=== PATIENT | female | born 1930 | race Caucasian/White ===

== ENCOUNTER 2018-07-02 06:50 | Observation (INO) | payer MEDICARE ==
[~2018-07-02] VITALS: Ht 172.7 cm; Wt 72.7 kg
[2018-07-02 07:25] LABS: HEMATOCRIT 38.1 % (35.0-45.0); HEMOGLOBIN 12.8 g/dl (12.0-16.0); MEAN CORPUSCULAR HEMOGLOBIN 31.1 PG (27.0-31.0); MEAN CORPUSCULAR HGB CONC 33.7 g/dL (33.0-36.5); MEAN CORPUSCULAR VOLUME 92.3 FL (78-98); MEAN PLATELET VOLUME 8.7 FL (7.4-10.4); PLATELET COUNT 186 X10'3 (140-440); RED BLOOD COUNT 4.13 X10'6 (4.20-5.60); RED CELL DISTRIBUTION WIDTH 13.9 % (11.5-14.5); WHITE BLOOD COUNT 6.3 X10'3 (4.5-11.0)
[2018-07-02] MEDS: ondansetron 4mg rapidly disintigrating tab PO ONE ×2 (07:39→07:47)
[2018-07-02 07:41] LABS: INR 1.1 INR; PARTIAL THROMBOPLASTIN TIME 30 SECONDS (22-32); PROTHROMBIN TIME 11.3 SECONDS (9.0-12.0)
[2018-07-02 07:45] LABS: TOTAL CELLS COUNTED 100
[2018-07-02 07:46] LABS: ALANINE AMINOTRANSFERASE 24 U/L (12-78); ALBUMIN 3.7 G/DL (3.4-5.0); ALBUMIN/GLOBULIN RATIO 0.9 (1.1-1.5); ALKALINE PHOSPHATASE 91 IU/L (46-116); ANION GAP 11 (8-16); ASPARTATE AMINO TRANSFERASE 26 U/L (10-37); BILIRUBIN,TOTAL 1.4 MG/DL (0.1-1.0); BLOOD UREA NITROGEN 19 MG/DL (7-18); BUN/CREATININE RATIO 19.8 (6.6-38.0); CALCIUM 9.3 MG/DL (8.5-10.1); CHLORIDE 102 MMOL/L (99-107); CREATININE 0.96 MG/DL (0.40-0.90); GLUCOSE 96 MG/DL (70-104); PLATELET ESTIMATE NORMAL; POTASSIUM 3.6 MMOL/L (3.5-5.1); SODIUM 140 MMOL/L (135-145); TOTAL CARBON DIOXIDE 26.9 MMOL/L (24-32); TOTAL PROTEIN 7.9 G/DL (6.4-8.2); eGFR 55 ML/MIN
[2018-07-02] MEDS ORDERED: aspirin 325mg tablet PO ONE (07:50)
[2018-07-02] MEDS ORDERED: normal saline 1000ml 1,000 ML IV ONE (07:50)
[2018-07-02] MEDS ORDERED: magnesium 4gm in 100ml NS 100 ML IV PRN (10:00)
[2018-07-02] MEDS ORDERED: magnesium 2GM in 50ml NS 50 ML IV PRN (10:00)
[2018-07-02] MEDS ORDERED: potassium Cl 20 mEq SR tablet PO PRN ×2 (10:00)
[2018-07-02] MEDS ORDERED: magnesium hydroxide 30ml (MOM) UD suspension PO PRN (10:00)
[2018-07-02] MEDS ORDERED: acetaminophen 325mg tablet PO PRN (10:00)
[2018-07-02] MEDS ORDERED: magnesium Cl slow-release 64mg tablet PO PRN (10:00)
[2018-07-02] MEDS ORDERED: ondansetron/PF 4mg/2ml inj IV PRN (10:00)
[2018-07-02] MEDS ORDERED: mag hydrox/Alum hydrox/simeth 30ml oral suspension PO PRN (10:00)
[2018-07-02] MEDS ORDERED: potassium Cl 40MEQ/NS 500ml 500 ML IV PRN ×2 (10:00)
[2018-07-02] MEDS ORDERED: bisacodyl 10mg suppository rectal RC PRN (10:00)
[2018-07-02] MEDS ORDERED: HYDROcodone/acetaminophen 5mg/325mg tablet PO PRN (10:00)
[2018-07-02] MEDS: potassium Cl 20mEq in NS 1,000 ML IV SCH ×2 (12:40→19:45)
--- NOTE | 2018-07-02 12:45 | NUR ---
relieving RN for lunch, pt is resting quietly on bed, resp even and unlabored, skin p/w/d, friend at bedside,
[2018-07-02 14:19] LABS: CLARITY,URINE CLEAR (Clear); COLOR,URINE YELLOW (Yellow); GLUCOSE, URINE NEGATIVE (Neg); KETONES,URINE 15 mg/dl (Neg); LEUKOCYTE ESTERASE ,URINE NEGATIVE (Neg); NITRITES, URINE NEGATIVE (Neg); OCCULT BLOOD,URINE SMALL (Neg); PROTEIN,URINE NEGATIVE (Neg); UROBILINOGEN,URINE 0.2 E.U/dL (0.2-1.0)
[2018-07-02 14:20] LABS: UA COLLECTION TYPE CLN CATCH MIDSTREAM
[2018-07-02 14:30] LABS: BACTERIA,URINE NONE SEEN /HPF (Neg); MUCUS STRANDS FEW /LPF (Neg); RBC,URINE NONE SEEN /HPF (0-2); SQUAMOUS EPITHELIAL CELL,UR FEW /LPF (FEW); WBC,URINE NONE SEEN /HPF (0-4)
[2018-07-02] MEDS ORDERED: LORazepam 2 mg/ml vial IV ONE (15:00)
[2018-07-02] MEDS ORDERED: ASPI-611 PO (15:36)
[2018-07-02] MEDS ORDERED: NAPR220T67 PO (15:36)
[2018-07-02] MEDS ORDERED: MAGN400C PO (15:36)
[2018-07-02] MEDS ORDERED: LISI-604 PO (15:36)
[2018-07-02] MEDS ORDERED: ASCO500C15 PO (15:36)
[2018-07-02 16:15] VITALS: BP 134/76
[2018-07-02 18:00] VITALS: BP 130/65
--- NOTE | 2018-07-02 18:00 | NUR ---
Patient in room ORTHO 4018. I have received report from LAUREN Walter and had the opportunity to ask questions and assume patient care.
--- NOTE | 2018-07-02 18:00 | NUR ---
Problems reprioritized. Patient report given, questions answered & plan of care reviewed with DANICA AGUILAR.
[2018-07-02] MEDS: docusate sod 100mg capsule PO SCH (19:46)
[2018-07-02 22:00] VITALS: BP 134/60
[2018-07-03 06:00] VITALS: BP 142/57
--- NOTE | 2018-07-03 06:05 | NUR ---
Problems reprioritized. Patient report given, questions answered & plan of care reviewed with DANICA AGUILAR.
--- NOTE | 2018-07-03 06:07 | NUR ---
Problems reprioritized. Patient report given, questions answered & plan of care reviewed with LAUREN Walter.
[2018-07-03 07:31] LABS: BASOPHILS % (AUTO) 0.3 % (0-1); EOSINOPHILS # (AUTO) 0.1 X10'3 (0-0.9); EOSINOPHILS % (AUTO) 2.9 % (0-6); HEMATOCRIT 33.7 % (35.0-45.0); HEMOGLOBIN 11.3 g/dl (12.0-16.0); LYMPHOCYTES # (AUTO) 1.6 X10'3 (1.1-4.8); LYMPHOCYTES % (AUTO) 36.4 % (21-51); MEAN CORPUSCULAR HEMOGLOBIN 31.4 PG (27.0-31.0); MEAN CORPUSCULAR HGB CONC 33.7 g/dL (33.0-36.5); MEAN CORPUSCULAR VOLUME 93.2 FL (78-98); MEAN PLATELET VOLUME 8.9 FL (7.4-10.4); MONOCYTES # (AUTO) 0.5 X10'3 (0-0.9); MONOCYTES % (AUTO) 11.1 % (2-12); NEUTROPHILS # (AUTO) 2.2 X10'3 (1.8-7.7); NEUTROPHILS % (AUTO) 49.3 % (42-75); PLATELET COUNT 150 X10'3 (140-440); RED BLOOD COUNT 3.61 X10'6 (4.20-5.60); RED CELL DISTRIBUTION WIDTH 13.9 % (11.5-14.5); WHITE BLOOD COUNT 4.4 X10'3 (4.5-11.0)
[2018-07-03 07:36] LABS: ALBUMIN 3.1 G/DL (3.4-5.0); ANION GAP 9 (8-16); BLOOD UREA NITROGEN 16 MG/DL (7-18); BUN/CREATININE RATIO 18.6 (6.6-38.0); CALCIUM 8.8 MG/DL (8.5-10.1); CHLORIDE 108 MMOL/L (99-107); CREATININE 0.86 MG/DL (0.40-0.90); GLUCOSE 85 MG/DL (70-104); MAGNESIUM 1.9 MG/DL (1.5-2.4); POTASSIUM 4.1 MMOL/L (3.5-5.1); SODIUM 143 MMOL/L (135-145); TOTAL CARBON DIOXIDE 26.1 MMOL/L (24-32); eGFR 62 ML/MIN
[2018-07-03] MEDS: docusate sod 100mg capsule PO SCH (08:00)
[2018-07-03] MEDS ORDERED: aspirin 325mg tablet, delayed-release (Ecotrin) PO SCH (08:00)
[2018-07-03] MEDS ORDERED: enoxaparin 40mg/0.4ml syringe SUBCUT SCH (08:00)
[2018-07-03] MEDS ORDERED: K and/or MAG REPLACEMENT MC SCH (08:00)
--- NOTE | 2018-07-03 08:17 | NUR ---
PAGER ID: [phone] MESSAGE: [id number] RE: SATURNINO [id number] JUST TELE REPORTS PTS HR IN THE 30-40 AT TIMES THROUGHT THE NIGHT
[2018-07-03 09:12] LABS: CHOL/HDL RATIO 3.6 (0.00-4.99); CHOLESTEROL 189 MG/DL (0-200); HDL CHOLESTEROL 52 MG/DL (35-60); LDL CHOLESTEROL 123 MG/DL (50-100); TRIGLYCERIDES 55 MG/DL (20-135)
[2018-07-03 10:00] VITALS: BP 138/67
--- NOTE | 2018-07-03 14:22 | NUR ---
Cindy Consult: Pt admit atrial fibrillation. Pt PO intake is 100% meeting nutrition needs. Pt states that she recently moved and loses weight each time she moves to a new apartment. Pt states she loses weight when she feels anxious but always gains weight back. Pt has not edema or evident fat/muscle wasting. Pt does not meet criteria for malnutrition at this time. Will continue to follow. Addendum: 07/03/18 at [address] Amended: Links added. Addendum: 07/03/18 at [address] I have reviewed and agree with note by Cylinder Worker. Umm Rose RD
[2018-07-03] MEDS: potassium Cl 20mEq in NS 1,000 ML IV SCH (14:33)
--- NOTE | 2018-07-03 15:50 | NUR ---
Patient in room ORTHO 4018. I have received report from Saba and had the opportunity to ask questions and assume patient care.
--- NOTE | 2018-07-03 15:50 | NUR ---
Problems reprioritized. Patient report given, questions answered & plan of care reviewed with HAILEY AGUILAR.
[2018-07-03] MEDS ORDERED: ATOR20TA66 PO (17:06)
[2018-07-03] MEDS ORDERED: APIX5TAB3 PO (17:06)
--- NOTE | 2018-07-03 17:40 | NUR ---
Pt was wheeled down front where her friend will be driving her home. Rx was called into the [facility] pharmacy on [address]
[2018-07-03] MEDS ORDERED: apixaban 5mg tablet PO SCH (20:00)
[2018-07-04] MEDS ORDERED: atorvastatin 20mg tablet PO SCH (08:00)
[2018-07-04] MEDS ORDERED: lisinopril 5mg tablet PO SCH (08:00)
== END 2018-07-03 17:50 | disposition home or self-care (01) ==
LOC: ER 06:52 → ED HOLD 09:57 → ORTHO 4S 16:15
PROVIDERS: ADMIT Internal Medicine; ATTEND Internal Medicine
DX: I48.91 Unspecified atrial fibrillation (principal); M17.11 Unilateral primary osteoarthritis, right knee; I10 Essential (primary) hypertension; E78.5 Hyperlipidemia, unspecified; I25.2 Old myocardial infarction; R20.2 Paresthesia of skin; R42 Dizziness and giddiness
CPT/HCPCS: 36415; 70450; 70544; 70551; 71045; 80048; 80053; 80061; 81001; 83735; 84439; 84443; 84484; 85025; 85610; 85651; 85730; 87070; 93005; 93306; 93880; 96361; 96374; 99284; G0378; J2060

== ENCOUNTER 2018-07-10 09:06 | Emergency (ER) | payer MEDICARE ==
[~2018-07-10] VITALS: Ht 172.7 cm; Wt 72.2 kg
[~2018-07-10 09:06] MED LIST: APIX5TAB3 PO; ASCO500C15 PO; ATOR20TA66 PO; LISI-604 PO; MAGN400C PO
[2018-07-10] MEDS ORDERED: LORazepam 2 mg/ml vial IV ONE (10:40)
--- NOTE | 2018-07-10 11:02 | NUR ---
ANGELINE (PT'S DAUGHTER) CALLED TO CHECK UP ON PT AND FIND OUT HOW SHE IS. PT IS IN MRI AT THIS TIME.
[2018-07-10 11:30] VITALS: BP 149/83
[2018-07-11] MEDS ORDERED: ASPI81TA52 PO (12:48)
[2018-07-11] MEDS ORDERED: ATOR40TA PO (12:48)
== END 2018-07-10 12:14 | disposition home or self-care (01) ==
LOC: ER 09:07
DX: R47.81 Slurred speech (principal); I10 Essential (primary) hypertension; I25.2 Old myocardial infarction; Z88.8 Allergy status to other drugs, medicaments and biological substances; Z79.899 Other long term (current) drug therapy
CPT/HCPCS: 70551; 93005; 96374; 99284; J2060

== ENCOUNTER 2018-07-11 11:34 | Emergency (ER) | payer MEDICARE ==
[~2018-07-11] VITALS: Ht 175.3 cm; Wt 79.0 kg
--- NOTE | 2018-07-11 12:10 | NUR ---
TELE-NEUROLOGY INITIATED
[2018-07-11] MEDS ORDERED: ATOR40TA PO (12:48)
[2018-07-11] MEDS ORDERED: ASPI81TA52 PO (12:48)
[2018-07-11 13:14] VITALS: BP 144/66
== END 2018-07-11 13:21 | disposition home or self-care (01) ==
LOC: ER 11:34
DX: R47.81 Slurred speech (principal); R20.2 Paresthesia of skin; R20.0 Anesthesia of skin; I10 Essential (primary) hypertension; I25.2 Old myocardial infarction; Z88.8 Allergy status to other drugs, medicaments and biological substances; Z79.899 Other long term (current) drug therapy
CPT/HCPCS: 99283

== ENCOUNTER 2018-08-09 19:03 | Emergency (ER) | payer MEDICARE ==
[~2018-08-09] VITALS: Ht 172.7 cm; Wt 72.7 kg
[~2018-08-09 19:03] MED LIST changes: +ASPI81TA52 PO; +ATOR40TA PO
--- NOTE | 2018-08-09 19:36 | NUR ---
labs drawn, piv inplace, pt a&ox4 and reports symptoms are resolving. she reports over the past month have episodes like that and that she has had 2 ct scans and an mri in the past month (all doen here). she was with her friend 1 hr ago in the car (as a passenger) going to a dinner when she began to "not think clearly and slurring my speech". "these episodes seem to have started since i began taking xeralto". takes xeralto for afib and bradycardia. dr. mccracken in with triage nurse to assess. stroke alert level 1 called. Addendum: 08/09/18 at 1939 by EUSEBIO correction: pt taking eloquist, NOT XERALTO.
[2018-08-09 19:48] LABS: BASOPHILS % (AUTO) 0.2 % (0-1); EOSINOPHILS # (AUTO) 0.1 X10'3 (0-0.9); EOSINOPHILS % (AUTO) 2.1 % (0-6); HEMATOCRIT 42.1 % (35.0-45.0); HEMOGLOBIN 13.5 g/dl (12.0-16.0); LYMPHOCYTES % (AUTO) 45.2 % (21-51); MEAN CORPUSCULAR HEMOGLOBIN 30.2 PG (27.0-31.0); MEAN CORPUSCULAR HGB CONC 32.1 g/dL (33.0-36.5); MEAN PLATELET VOLUME 8.4 FL (7.4-10.4); MONOCYTES # (AUTO) 0.7 X10'3 (0-0.9); NEUTROPHILS # (AUTO) 2.8 X10'3 (1.8-7.7); NEUTROPHILS % (AUTO) 42.5 % (42-75); PLATELET COUNT 190 X10'3 (140-440); RED BLOOD COUNT 4.47 X10'6 (4.20-5.60); RED CELL DISTRIBUTION WIDTH 14.4 % (11.5-14.5); WHITE BLOOD COUNT 6.7 X10'3 (4.5-11.0)
[2018-08-09 19:58] LABS: ALANINE AMINOTRANSFERASE 25 U/L (12-78); ALBUMIN 4.1 G/DL (3.4-5.0); ALKALINE PHOSPHATASE 102 IU/L (46-116); ANION GAP 13 (8-16); ASPARTATE AMINO TRANSFERASE 26 U/L (10-37); BILIRUBIN,TOTAL 0.9 MG/DL (0.1-1.0); BLOOD UREA NITROGEN 17 MG/DL (7-18); BUN/CREATININE RATIO 17.9 (6.6-38.0); CALCIUM 9.6 MG/DL (8.5-10.1); CHLORIDE 103 MMOL/L (99-107); CREATININE 0.95 MG/DL (0.40-0.90); GLUCOSE 83 MG/DL (70-104); POTASSIUM 3.5 MMOL/L (3.5-5.1); SODIUM 141 MMOL/L (135-145); TOTAL CARBON DIOXIDE 25.3 MMOL/L (24-32); TOTAL PROTEIN 8.2 G/DL (6.4-8.2); eGFR 56 ML/MIN
[2018-08-09 20:01] LABS: INR 1.1 INR; PARTIAL THROMBOPLASTIN TIME 31 SECONDS (22-32); PROTHROMBIN TIME 11.4 SECONDS (9.0-12.0); TROPONIN I < 0.04 NG/ML (0.0-0.05)
--- NOTE | 2018-08-09 20:29 | NUR ---
Two friends now at bedside.
[2018-08-09] MEDS ORDERED: aspirin 81mg tab.chew PO ONE (20:30)
--- NOTE | 2018-08-09 20:44 | NUR ---
bp 192/110, dr. mccracken updated that bp fluctuating from 160/ systolic to 190's systolic. pt reprots she was taking metoprolol, but dr. mayo recently stopped it. me to order dose of asa and lisinopril prior to dc and to give script for lisinopril. pt with friends at bedide and is no dc ready.
[2018-08-09] MEDS ORDERED: lisinopril 10 MG tablet PO ONE (20:45)
[2018-08-09] MEDS ORDERED: LISI10TA4 PO (20:47)
--- NOTE | 2018-08-09 20:50 | NUR ---
pt reports lisinopril makes her very dizzy and requests metoprolol instead. dr. mccracken reports he will go talk to her.
--- NOTE | 2018-08-09 21:28 | NUR ---
PT STATUS REMAINIS DC WITH MD. THEY ARE AWAITING DR. CABALLERO TO TALK WITH THEM ABOUT HTN MEDS. BP 162/87
[2018-08-09 21:29] VITALS: BP 162/87
[2018-08-09] MEDS ORDERED: AMLO5TAB4 PO (21:29)
[2018-08-09] MEDS ORDERED: amLODIPine 5mg tablet PO ONE (21:30)
--- NOTE | 2018-08-09 21:34 | NUR ---
dr mccracken talking with pt. he reports he has spoken with dr. mayo. pt to be given perscription fo norvasc 5 mg daily and 1st dose here. bp 162/103
== END 2018-08-09 21:59 | disposition home or self-care (01) ==
LOC: ER 19:04
DX: G45.9 Transient cerebral ischemic attack, unspecified (principal); I10 Essential (primary) hypertension; I25.2 Old myocardial infarction; Z86.73 Personal history of transient ischemic attack (TIA), and cerebral infarction without residual deficits; Z88.1 Allergy status to other antibiotic agents; Z79.82 Long term (current) use of aspirin
CPT/HCPCS: 36415; 70450; 71045; 80053; 82948; 84484; 85025; 85610; 85730; 93005; 99284

== ENCOUNTER 2019-11-03 15:33 | Inpatient (IN) | payer MEDICARE ==
[~2019-11-03] VITALS: Ht 172.7 cm; Wt 71.8 kg
[~2019-11-03 15:33] MED LIST changes: +AMLO5TAB4 PO; -ASCO500C15 PO; -ASPI81TA52 PO; -ATOR20TA66 PO; -ATOR40TA PO; -LISI-604 PO; -MAGN400C PO
[2019-11-03 16:44] LABS: BASOPHILS % (AUTO) 0.2 % (0-1); EOSINOPHILS # (AUTO) 0.1 X10'3 (0-0.9); EOSINOPHILS % (AUTO) 1.4 % (0-6); HEMATOCRIT 34.8 % (35.0-45.0); HEMOGLOBIN 11.4 g/dl (12.0-16.0); LYMPHOCYTES # (AUTO) 1.6 X10'3 (1.1-4.8); LYMPHOCYTES % (AUTO) 31.5 % (21-51); MEAN CORPUSCULAR HEMOGLOBIN 30.3 PG (27.0-31.0); MEAN CORPUSCULAR HGB CONC 32.7 g/dL (33.0-36.5); MEAN CORPUSCULAR VOLUME 92.5 FL (78-98); MEAN PLATELET VOLUME 8.3 FL (7.4-10.4); MONOCYTES # (AUTO) 0.5 X10'3 (0-0.9); MONOCYTES % (AUTO) 9.7 % (2-12); NEUTROPHILS # (AUTO) 2.9 X10'3 (1.8-7.7); NEUTROPHILS % (AUTO) 57.2 % (42-75); PLATELET COUNT 208 X10'3 (140-440); RED BLOOD COUNT 3.77 X10'6 (4.20-5.60); RED CELL DISTRIBUTION WIDTH 14.7 % (11.5-14.5); WHITE BLOOD COUNT 5.1 X10'3 (4.5-11.0)
[2019-11-03 16:55] LABS: ALANINE AMINOTRANSFERASE 30 U/L (12-78); ALBUMIN 3.9 G/DL (3.4-5.0); ALKALINE PHOSPHATASE 114 IU/L (46-116); ANION GAP 7 (8-16); ASPARTATE AMINO TRANSFERASE 34 U/L (10-37); BILIRUBIN,TOTAL 0.9 MG/DL (0.1-1.0); BLOOD UREA NITROGEN 24 MG/DL (7-18); BUN/CREATININE RATIO 22.2 (6.6-38.0); CALCIUM 9.3 MG/DL (8.5-10.1); CHLORIDE 107 MMOL/L (99-107); CREATININE 1.08 MG/DL (0.40-0.90); GLUCOSE 95 MG/DL (70-104); POTASSIUM 3.4 MMOL/L (3.5-5.1); SODIUM 143 MMOL/L (135-145); TOTAL CARBON DIOXIDE 29.1 MMOL/L (24-32); eGFR 48 ML/MIN
[2019-11-03] MEDS ORDERED: normal saline 1000ML IV soln IVB ONE (17:45)
[2019-11-03] MEDS ORDERED: pantoprazole 40 MG vial IV ONE (17:45)
[2019-11-03 18:03] LABS: PARTIAL THROMBOPLASTIN TIME 35 SECONDS (22-32)
[2019-11-03] MEDS ORDERED: AMLO5TAB PO (19:03)
[2019-11-03] MEDS ORDERED: APIX5TAB3 PO (19:03)
[2019-11-03] MEDS: normal saline 1000ml 1,000 ML IV SCH (19:18)
[2019-11-03] MEDS ORDERED: mag hydrox/Alum hydrox/simeth 30ml oral suspension PO PRN (19:20)
[2019-11-03] MEDS ORDERED: acetaminophen 325mg tablet PO PRN ×2 (19:20)
[2019-11-03] MEDS ORDERED: ondansetron/PF 4mg/2ml inj IV PRN (19:20)
[2019-11-03] MEDS ORDERED: magnesium hydroxide 30ml (MOM) UD suspension PO PRN (19:20)
[2019-11-03] MEDS ORDERED: HYDROcodone/acetaminophen 5mg/325mg tablet PO PRN (19:20)
[2019-11-03] MEDS ORDERED: morphine 2 MG/ML inj. syringe IV PRN ×2 (19:20)
[2019-11-04] VITALS (17 sets, daily range): BP systolic 129–164; BP diastolic 56–96
[2019-11-04] MEDS: pantoprazole 40MG/NS 100ML BAG 100 ML IV SCH ×5 (00:04→20:03)
[2019-11-04 01:03] LABS: BASOPHILS % (AUTO) 0.3 % (0-1); EOSINOPHILS # (AUTO) 0.1 X10'3 (0-0.9); EOSINOPHILS % (AUTO) 2.6 % (0-6); HEMATOCRIT 31.2 % (35.0-45.0); HEMOGLOBIN 10.3 g/dl (12.0-16.0); LYMPHOCYTES # (AUTO) 1.6 X10'3 (1.1-4.8); LYMPHOCYTES % (AUTO) 33.1 % (21-51); MEAN CORPUSCULAR HEMOGLOBIN 30.9 PG (27.0-31.0); MEAN CORPUSCULAR HGB CONC 33.2 g/dL (33.0-36.5); MEAN CORPUSCULAR VOLUME 93.3 FL (78-98); MEAN PLATELET VOLUME 7.8 FL (7.4-10.4); MONOCYTES # (AUTO) 0.5 X10'3 (0-0.9); MONOCYTES % (AUTO) 9.9 % (2-12); NEUTROPHILS # (AUTO) 2.6 X10'3 (1.8-7.7); NEUTROPHILS % (AUTO) 54.1 % (42-75); PLATELET COUNT 167 X10'3 (140-440); RED BLOOD COUNT 3.34 X10'6 (4.20-5.60); RED CELL DISTRIBUTION WIDTH 14.8 % (11.5-14.5); WHITE BLOOD COUNT 4.7 X10'3 (4.5-11.0)
[2019-11-04 01:16] LABS: ALBUMIN 3.2 G/DL (3.4-5.0); ANION GAP 9 (8-16); BLOOD UREA NITROGEN 19 MG/DL (7-18); BUN/CREATININE RATIO 19.6 (6.6-38.0); CALCIUM 8.7 MG/DL (8.5-10.1); CHLORIDE 110 MMOL/L (99-107); CREATININE 0.97 MG/DL (0.40-0.90); GLUCOSE 86 MG/DL (70-104); POTASSIUM 3.5 MMOL/L (3.5-5.1); SODIUM 144 MMOL/L (135-145); TOTAL CARBON DIOXIDE 24.9 MMOL/L (24-32); eGFR 54 ML/MIN
[2019-11-04] MEDS: normal saline 1000ml 1,000 ML IV SCH ×2 (05:18→10:31)
--- NOTE | 2019-11-04 06:25 | NUR ---
Problems reprioritized. Patient report given, questions answered & plan of care reviewed with LAUREN Zambrano.
[2019-11-04 09:09] LABS: HEMATOCRIT 29.8 % (35.0-45.0); HEMOGLOBIN 9.7 g/dl (12.0-16.0); MEAN CORPUSCULAR HEMOGLOBIN 30.3 PG (27.0-31.0); MEAN CORPUSCULAR HGB CONC 32.7 g/dL (33.0-36.5); MEAN CORPUSCULAR VOLUME 92.7 FL (78-98); MEAN PLATELET VOLUME 8.1 FL (7.4-10.4); PLATELET COUNT 164 X10'3 (140-440); RED BLOOD COUNT 3.21 X10'6 (4.20-5.60); RED CELL DISTRIBUTION WIDTH 14.6 % (11.5-14.5)
--- NOTE | 2019-11-04 11:13 | NUR ---
Patient reported a small bowel movement this morning that was black and bloody show on the toilet paper. Addendum: 11/04/19 at 1117 by Mackenzie TRUJILLO Amended: Links added.
--- NOTE | 2019-11-04 11:33 | NUR ---
Malnutrition consult. Patient is an 88 year old female presenting with c/o melena with 5-6 dark BMs in past 24 hours r/t possible upper GIB per H&P; Now NPO for OR per diet order. Reports following a regular diet, unsure o juvencio recent wt loss, and reports eating poorly for more than a week d/t poor appetite. Current documented wt 71.82 kg (no wt method). Documented wt one year ago 72.73 kg (pt stated). No known recent loss. No edema. No malnutrition at this time. Will continue to follow. Addendum: 11/04/19 at [address] Amended: Links added.
--- NOTE | 2019-11-04 12:27 | NUR ---
PAGER ID: [phone] MESSAGE: Kenya [email or web address] Sarai Helms in [phone]- Please call me about the antibiotic, thanks
[2019-11-04] MEDS ORDERED: amoxicillin 250mg capsule PO ONE (13:05)
[2019-11-04] MEDS ORDERED: fentaNYL/PF 50MCG/1 ML 2ML syringe ONE (15:58)
[2019-11-04] MEDS ORDERED: LIDOcaine Viscous 15ml cup ONE (15:58)
[2019-11-04] MEDS ORDERED: MIDAZolam 5mg/5ml vial ONE (15:58)
--- NOTE | 2019-11-04 18:29 | NUR ---
Patient in room ORTHO 4009. I have received report from Kenya AGUILAR and had the opportunity to ask questions and assume patient care.
[2019-11-04 19:31] LABS: HEMATOCRIT 31.7 % (35.0-45.0); HEMOGLOBIN 10.4 g/dl (12.0-16.0); MEAN CORPUSCULAR HEMOGLOBIN 30.9 PG (27.0-31.0); MEAN CORPUSCULAR HGB CONC 32.7 g/dL (33.0-36.5); MEAN CORPUSCULAR VOLUME 94.4 FL (78-98); PLATELET COUNT 173 X10'3 (140-440); RED BLOOD COUNT 3.36 X10'6 (4.20-5.60); RED CELL DISTRIBUTION WIDTH 14.5 % (11.5-14.5); WHITE BLOOD COUNT 4.4 X10'3 (4.5-11.0)
[2019-11-05 00:53] LABS: HEMATOCRIT 29.6 % (35.0-45.0); HEMOGLOBIN 9.7 g/dl (12.0-16.0); MEAN CORPUSCULAR HEMOGLOBIN 30.8 PG (27.0-31.0); MEAN CORPUSCULAR HGB CONC 32.9 g/dL (33.0-36.5); MEAN CORPUSCULAR VOLUME 93.4 FL (78-98); MEAN PLATELET VOLUME 7.9 FL (7.4-10.4); PLATELET COUNT 162 X10'3 (140-440); RED BLOOD COUNT 3.16 X10'6 (4.20-5.60); RED CELL DISTRIBUTION WIDTH 14.4 % (11.5-14.5); WHITE BLOOD COUNT 4.7 X10'3 (4.5-11.0)
[2019-11-05] MEDS: pantoprazole 40MG/NS 100ML BAG 100 ML IV SCH ×4 (01:18→19:12)
[2019-11-05] MEDS: normal saline 1000ml 1,000 ML IV SCH ×2 (01:18→04:02)
[2019-11-05 05:57] VITALS: BP 129/60
--- NOTE | 2019-11-05 06:32 | NUR ---
Problems reprioritized. Patient report given, questions answered & plan of care reviewed with Eduarda AGUILAR.
[2019-11-05 06:44] LABS: ALBUMIN 3.3 G/DL (3.4-5.0); ANION GAP 12 (8-16); BLOOD UREA NITROGEN 12 MG/DL (7-18); BUN/CREATININE RATIO 12.2 (6.6-38.0); CALCIUM 8.9 MG/DL (8.5-10.1); CHLORIDE 109 MMOL/L (99-107); CREATININE 0.98 MG/DL (0.40-0.90); GLUCOSE 62 MG/DL (70-104); POTASSIUM 3.7 MMOL/L (3.5-5.1); SODIUM 144 MMOL/L (135-145); eGFR 53 ML/MIN
[2019-11-05 07:02] LABS: BASOPHILS % (AUTO) 0.3 % (0-1); EOSINOPHILS # (AUTO) 0.1 X10'3 (0-0.9); EOSINOPHILS % (AUTO) 2.2 % (0-6); HEMOGLOBIN 10.9 g/dl (12.0-16.0); LYMPHOCYTES # (AUTO) 1.6 X10'3 (1.1-4.8); LYMPHOCYTES % (AUTO) 30.4 % (21-51); MEAN CORPUSCULAR HEMOGLOBIN 30.8 PG (27.0-31.0); MEAN CORPUSCULAR VOLUME 93.6 FL (78-98); MEAN PLATELET VOLUME 8.2 FL (7.4-10.4); MONOCYTES # (AUTO) 0.4 X10'3 (0-0.9); MONOCYTES % (AUTO) 7.9 % (2-12); NEUTROPHILS % (AUTO) 59.2 % (42-75); PLATELET COUNT 189 X10'3 (140-440); RED BLOOD COUNT 3.53 X10'6 (4.20-5.60); RED CELL DISTRIBUTION WIDTH 14.9 % (11.5-14.5); WHITE BLOOD COUNT 5.1 X10'3 (4.5-11.0)
[2019-11-05 08:22] LABS: HEMATOCRIT 31.9 % (35.0-45.0); HEMOGLOBIN 10.4 g/dl (12.0-16.0); MEAN CORPUSCULAR HEMOGLOBIN 30.3 PG (27.0-31.0); MEAN CORPUSCULAR HGB CONC 32.7 g/dL (33.0-36.5); MEAN CORPUSCULAR VOLUME 92.5 FL (78-98); MEAN PLATELET VOLUME 7.9 FL (7.4-10.4); PLATELET COUNT 180 X10'3 (140-440); RED BLOOD COUNT 3.45 X10'6 (4.20-5.60); RED CELL DISTRIBUTION WIDTH 15.1 % (11.5-14.5); WHITE BLOOD COUNT 4.9 X10'3 (4.5-11.0)
[2019-11-05 11:00] VITALS: BP 146/75
[2019-11-05] MEDS ORDERED: PEG 3350/Na sulf,bicarb,Cl/KCl oral sol 4 liter bottle PO ONE (11:35)
--- NOTE | 2019-11-05 12:23 | NUR ---
Per MD Gutierrez orthostatics are not needed at this time.
[2019-11-05 16:19] LABS: HEMATOCRIT 33.9 % (35.0-45.0); HEMOGLOBIN 11.1 g/dl (12.0-16.0); MEAN CORPUSCULAR HEMOGLOBIN 30.5 PG (27.0-31.0); MEAN CORPUSCULAR HGB CONC 32.9 g/dL (33.0-36.5); MEAN CORPUSCULAR VOLUME 92.9 FL (78-98); MEAN PLATELET VOLUME 7.9 FL (7.4-10.4); PLATELET COUNT 199 X10'3 (140-440); RED BLOOD COUNT 3.65 X10'6 (4.20-5.60); RED CELL DISTRIBUTION WIDTH 14.6 % (11.5-14.5); WHITE BLOOD COUNT 4.8 X10'3 (4.5-11.0)
[2019-11-05 17:00] VITALS: BP 133/74
--- NOTE | 2019-11-05 18:10 | NUR ---
Patient in room ORTHO 4014. I have received report from LAUREN Lerner and had the opportunity to ask questions and assume patient care.
--- NOTE | 2019-11-05 18:24 | NUR ---
Problems reprioritized. Patient report given, questions answered & plan of care reviewed with Angelique AGUILAR.
[2019-11-05] MEDS ORDERED: hydrocortisone acetate 25mg rectal suppository RC PRN (21:20)
[2019-11-05 22:00] VITALS: BP 161/77
[2019-11-06] VITALS (12 sets, daily range): BP systolic 119–153; BP diastolic 56–87
[2019-11-06] MEDS: normal saline 1000ml 1,000 ML IV SCH ×2 (00:07→11:14)
[2019-11-06] MEDS: pantoprazole 40MG/NS 100ML BAG 100 ML IV SCH ×4 (00:07→11:08)
--- NOTE | 2019-11-06 06:27 | NUR ---
Problems reprioritized. Patient report given, questions answered & plan of care reviewed with LAUREN Lizama.
[2019-11-06 07:12] LABS: BASOPHILS % (AUTO) 0.2 % (0-1); EOSINOPHILS # (AUTO) 0.1 X10'3 (0-0.9); EOSINOPHILS % (AUTO) 2.8 % (0-6); HEMATOCRIT 29.5 % (35.0-45.0); HEMOGLOBIN 9.8 g/dl (12.0-16.0); LYMPHOCYTES # (AUTO) 1.4 X10'3 (1.1-4.8); LYMPHOCYTES % (AUTO) 28.3 % (21-51); MEAN CORPUSCULAR HEMOGLOBIN 30.4 PG (27.0-31.0); MEAN CORPUSCULAR VOLUME 92.2 FL (78-98); MEAN PLATELET VOLUME 7.8 FL (7.4-10.4); MONOCYTES # (AUTO) 0.6 X10'3 (0-0.9); MONOCYTES % (AUTO) 12.1 % (2-12); NEUTROPHILS # (AUTO) 2.8 X10'3 (1.8-7.7); NEUTROPHILS % (AUTO) 56.6 % (42-75); PLATELET COUNT 173 X10'3 (140-440); RED CELL DISTRIBUTION WIDTH 14.9 % (11.5-14.5); WHITE BLOOD COUNT 4.9 X10'3 (4.5-11.0)
[2019-11-06 07:28] LABS: ALBUMIN 3.2 G/DL (3.4-5.0); ANION GAP 12 (8-16); BLOOD UREA NITROGEN 7 MG/DL (7-18); BUN/CREATININE RATIO 8.4 (6.6-38.0); CALCIUM 8.6 MG/DL (8.5-10.1); CHLORIDE 110 MMOL/L (99-107); CREATININE 0.83 MG/DL (0.40-0.90); GLUCOSE 86 MG/DL (70-104); POTASSIUM 3.3 MMOL/L (3.5-5.1); SODIUM 146 MMOL/L (135-145); TOTAL CARBON DIOXIDE 24.3 MMOL/L (24-32); eGFR 65 ML/MIN
[2019-11-06] MEDS ORDERED: fentaNYL/PF 50MCG/1 ML 2ML syringe ONE (08:29)
[2019-11-06] MEDS ORDERED: MIDAZolam 5mg/5ml vial ONE (08:29)
--- NOTE | 2019-11-06 11:04 | NUR ---
Returned to room following colonoscopy with Dr. Sharp. VS monitored.
--- NOTE | 2019-11-06 12:24 | NUR ---
Initial: Pt admit w/ possible upper GIB s/p colonoscopy w/ appendoceal biopsy, colon/rectal polyps x4, and sigmoid polyp per EMR. LBM 11/04. Remains NPO at this time w/ 0-25% clear liquids 1 day prior to NPO. Will monitor for PO diet advancement, PO tolerance, and additional protein needs. Rec: 1. advance diet as medically indicated to regular 2. monitor for ONS needs once PO 3. bowel care PRN 4. weekly wts Addendum: 11/06/19 at [address] Amended: Links added.
[2019-11-07] MEDS ORDERED: POTA20TA19 PO (13:02)
--- NOTE | 2019-11-09 12:12 | NUR ---
Case Management DC follow up: pt readmitted to [facility] 11/07/19. [id number]
== END 2019-11-06 15:45 | disposition home or self-care (01) | DRG 377 ==
LOC: ER 15:33 → ED HOLD 19:18 → ORTHO 4S 11-04 00:10
PROVIDERS: ADMIT Internal Medicine; ATTEND Family Medicine
PROC: 0DJ08ZZ Inspection of Upper Intestinal Tract, Via Natural or Artificial Opening Endoscopic (ICD-10-PCS; 2019-11-04)
PROC: 0DBN8ZZ Excision of Sigmoid Colon, Via Natural or Artificial Opening Endoscopic (ICD-10-PCS; principal; 2019-11-06)
PROC: 0DBK8ZZ Excision of Ascending Colon, Via Natural or Artificial Opening Endoscopic (ICD-10-PCS; 2019-11-06)
PROC: 0DBH8ZZ Excision of Cecum, Via Natural or Artificial Opening Endoscopic (ICD-10-PCS; 2019-11-06)
DX: K57.31 Diverticulosis of large intestine without perforation or abscess with bleeding (principal); N17.0 Acute kidney failure with tubular necrosis; E87.0 Hyperosmolality and hypernatremia; D62 Acute posthemorrhagic anemia; E87.6 Hypokalemia; I10 Essential (primary) hypertension; I25.10 Atherosclerotic heart disease of native coronary artery without angina pectoris; I48.0 Paroxysmal atrial fibrillation; K59.00 Constipation, unspecified; K64.4 Residual hemorrhoidal skin tags; D12.0 Benign neoplasm of cecum; D12.2 Benign neoplasm of ascending colon; D12.5 Benign neoplasm of sigmoid colon; I49.5 Sick sinus syndrome; Z96.641 Presence of right artificial hip joint; I25.2 Old myocardial infarction; Z79.01 Long term (current) use of anticoagulants; Z86.73 Personal history of transient ischemic attack (TIA), and cerebral infarction without residual deficits; Z87.891 Personal history of nicotine dependence; Z90.710 Acquired absence of both cervix and uterus; Z95.0 Presence of cardiac pacemaker; Z88.8 Allergy status to other drugs, medicaments and biological substances; Z90.49 Acquired absence of other specified parts of digestive tract
CPT/HCPCS: 36415; 43235; 45380; 45385; 80048; 80053; 83880; 85025; 85027; 85610; 85730; 86885; 86900; 86901; 87081; 93306; 99152; 99153; 99285; A4620; C1773; C9113; G0378; J2250; J3010; J7030; J7040; J7999

== ENCOUNTER 2019-11-07 11:37 | Emergency (ER) | payer MEDICARE ==
[~2019-11-07] VITALS: Ht 172.7 cm; Wt 70.0 kg
[~2019-11-07 11:37] MED LIST changes: +AMLO5TAB PO
[2019-11-07 12:28] LABS: ALANINE AMINOTRANSFERASE 33 U/L (12-78); ALBUMIN 3.6 G/DL (3.4-5.0); ALBUMIN/GLOBULIN RATIO 0.9 (1.1-1.5); ALKALINE PHOSPHATASE 95 IU/L (46-116); ASPARTATE AMINO TRANSFERASE 42 U/L (10-37); BASOPHILS % (AUTO) 0.1 % (0-1); BLOOD UREA NITROGEN 6 MG/DL (7-18); BUN/CREATININE RATIO 5.6 (6.6-38.0); CALCIUM 9.1 MG/DL (8.5-10.1); CHLORIDE 103 MMOL/L (99-107); CREATININE 1.08 MG/DL (0.40-0.90); EOSINOPHILS # (AUTO) 0.1 X10'3 (0-0.9); EOSINOPHILS % (AUTO) 2.1 % (0-6); GLUCOSE 146 MG/DL (70-104); HEMATOCRIT 35.3 % (35.0-45.0); HEMOGLOBIN 11.6 g/dl (12.0-16.0); LYMPHOCYTES # (AUTO) 1.1 X10'3 (1.1-4.8); MEAN CORPUSCULAR HEMOGLOBIN 30.2 PG (27.0-31.0); MEAN CORPUSCULAR HGB CONC 32.7 g/dL (33.0-36.5); MEAN CORPUSCULAR VOLUME 92.4 FL (78-98); MEAN PLATELET VOLUME 8.4 FL (7.4-10.4); MONOCYTES # (AUTO) 0.5 X10'3 (0-0.9); MONOCYTES % (AUTO) 8.6 % (2-12); NEUTROPHILS # (AUTO) 3.7 X10'3 (1.8-7.7); NEUTROPHILS % (AUTO) 68.2 % (42-75); PLATELET COUNT 216 X10'3 (140-440); RED BLOOD COUNT 3.82 X10'6 (4.20-5.60); RED CELL DISTRIBUTION WIDTH 14.7 % (11.5-14.5); TOTAL CARBON DIOXIDE 26.9 MMOL/L (24-32); TOTAL PROTEIN 7.5 G/DL (6.4-8.2); WHITE BLOOD COUNT 5.5 X10'3 (4.5-11.0); eGFR 48 ML/MIN
[2019-11-07 12:33] VITALS: BP 145/66
[2019-11-07 12:37] LABS: MAGNESIUM 1.6 MG/DL (1.5-2.4)
[2019-11-07 12:44] LABS: ANION GAP 8 (8-16); SODIUM 138 MMOL/L (135-145)
[2019-11-07] MEDS ORDERED: normal saline 1000ML IV soln IVB ONE (12:50)
[2019-11-07] MEDS ORDERED: potassium Cl 20 mEq SR tablet PO STA (13:01)
[2019-11-07] MEDS ORDERED: POTA20TA19 PO (13:02)
== END 2019-11-07 13:34 | disposition home or self-care (01) ==
LOC: ER 11:37
DX: E86.0 Dehydration (principal); I48.91 Unspecified atrial fibrillation; I10 Essential (primary) hypertension; I25.2 Old myocardial infarction; R42 Dizziness and giddiness; Z86.73 Personal history of transient ischemic attack (TIA), and cerebral infarction without residual deficits; Z88.8 Allergy status to other drugs, medicaments and biological substances; Z79.01 Long term (current) use of anticoagulants; Z79.899 Other long term (current) drug therapy
CPT/HCPCS: 36415; 71045; 80053; 83735; 83880; 84484; 85025; 93005; 96360; 99285; J7030; 88305

== ENCOUNTER 2019-11-12 11:34 | Emergency (ER) | payer MEDICARE ==
[~2019-11-12] VITALS: Ht 170.2 cm; Wt 150.0 kg
[~2019-11-12 11:34] MED LIST changes: -AMLO5TAB4 PO; +POTA20TA19 PO
[2019-11-12 12:57] LABS: BASOPHILS % (AUTO) 0.1 % (0-1); EOSINOPHILS # (AUTO) 0.1 X10'3 (0-0.9); EOSINOPHILS % (AUTO) 1.7 % (0-6); HEMATOCRIT 36.1 % (35.0-45.0); HEMOGLOBIN 11.7 g/dl (12.0-16.0); LYMPHOCYTES # (AUTO) 1.5 X10'3 (1.1-4.8); LYMPHOCYTES % (AUTO) 24.2 % (21-51); MEAN CORPUSCULAR HEMOGLOBIN 30.2 PG (27.0-31.0); MEAN CORPUSCULAR HGB CONC 32.5 g/dL (33.0-36.5); MEAN CORPUSCULAR VOLUME 92.9 FL (78-98); MEAN PLATELET VOLUME 8.2 FL (7.4-10.4); MONOCYTES # (AUTO) 0.5 X10'3 (0-0.9); MONOCYTES % (AUTO) 8.5 % (2-12); NEUTROPHILS % (AUTO) 65.5 % (42-75); PLATELET COUNT 229 X10'3 (140-440); RED BLOOD COUNT 3.88 X10'6 (4.20-5.60); RED CELL DISTRIBUTION WIDTH 14.8 % (11.5-14.5); WHITE BLOOD COUNT 6.1 X10'3 (4.5-11.0)
[2019-11-12 13:13] LABS: ALANINE AMINOTRANSFERASE 18 U/L (12-78); ALBUMIN 3.7 G/DL (3.4-5.0); ALBUMIN/GLOBULIN RATIO 0.9 (1.1-1.5); ALKALINE PHOSPHATASE 98 IU/L (46-116); ANION GAP 10 (8-16); ASPARTATE AMINO TRANSFERASE 34 U/L (10-37); BILIRUBIN,TOTAL 0.8 MG/DL (0.1-1.0); BLOOD UREA NITROGEN 16 MG/DL (7-18); BUN/CREATININE RATIO 15.4 (6.6-38.0); CALCIUM 9.1 MG/DL (8.5-10.1); CHLORIDE 102 MMOL/L (99-107); CREATININE 1.04 MG/DL (0.40-0.90); GLUCOSE 93 MG/DL (70-104); POTASSIUM 4.4 MMOL/L (3.5-5.1); SODIUM 138 MMOL/L (135-145); TOTAL CARBON DIOXIDE 25.9 MMOL/L (24-32); TOTAL PROTEIN 7.7 G/DL (6.4-8.2); eGFR 50 ML/MIN
--- NOTE | 2019-11-12 13:51 | NUR ---
SPOKE WITH RICARDO JETT RE: PT CONCERN FOR POSS TIA. JOHNIE STATES PT NOT HAVING TIA. LET FAMILY AND PT KNOW. PT OK AND FEELS SHE WAS WEAK DUE TO GOLYELY GIVEN FEW DAYS AGO.
[2019-11-12 13:53] VITALS: BP 140/86
== END 2019-11-12 14:02 | disposition home or self-care (01) ==
LOC: ER 11:35
DX: M54.2 Cervicalgia (principal); I48.91 Unspecified atrial fibrillation; I10 Essential (primary) hypertension; I25.2 Old myocardial infarction; Z86.73 Personal history of transient ischemic attack (TIA), and cerebral infarction without residual deficits; Z88.8 Allergy status to other drugs, medicaments and biological substances; Z79.01 Long term (current) use of anticoagulants; Z79.899 Other long term (current) drug therapy
CPT/HCPCS: 36415; 80053; 83735; 84484; 85025; 93005; 99284